=== PATIENT | female | born 2000 ===

== ENCOUNTER 2022-04-01 23:24 | Emergency (ER) | payer OTHER ==
[~2022-04-01] VITALS: Ht 177.8 cm; Wt 89.1 kg
[2022-04-01 23:49] VITALS: TEMP 98.5
[2022-04-02 00:42] LABS: COLLECTION METHOD CLEAN CATCH
[2022-04-02 00:46] LABS: BASO # 0.1 K/mm3 (0.0-0.2); BASO % 1.1 % (0.0-2.0); EOS # 0.1 K/mm3 (0.0-0.7); EOS % 2.4 % (0.0-4.0); GRAN # 2.9 K/mm3 (1.4-6.5); GRAN % 52.7 % (42.2-75.2); HEMATOCRIT 41.7 % (37.0-47.0); HEMOGLOBIN 14.1 g/dl (12.5-16.0); LYMPH % 36.4 % (20.0-51.0); MEAN CELL VOLUME 91 fl (80.0-100.0); MEAN CORPUSCULAR HEMOGLOBIN 31 pg (27-31); MEAN CORPUSCULAR HGB CONC 34 g/dl (33.0-37.0); MEAN PLATELET VOLUME 10.9 fl (7.4-10.4); MONO # 0.4 K/mm3 (0.1-0.6); MONO % 7.2 % (1.7-9.3); PLATELET COUNT 255 K/mm3 (130-400); RED BLOOD COUNT 4.57 M/mm3 (4.10-5.30); REDCELL DISTRIBUTION WIDTH-CV 12.1 % (11.5-14.5)
[2022-04-02 00:48] LABS: URINE COLOR Yellow (YELLOW)
[2022-04-02 00:49] LABS: URINE APPEARANCE Hazy (CLEAR/HAZY); URINE BLOOD Negative (NEGATIVE); URINE GLUCOSE Negative (NEGATIVE); URINE KETONE Negative (NEGATIVE); URINE NITRATE Negative (NEGATIVE); URINE PROTEIN(semi-quant) Negative (NEGATIVE); URINE UROBILINOGEN 0.2 E.U/dL (0.2-1.0)
[2022-04-02 00:55] LABS: AMORPHOUS CRYSTAL Present (NOT PRESENT); MUCOUS Present (NOT PRESENT); URINE BACTERIA None Seen /hpf (NONE SEEN); URINE RBC 0-2 /hpf (0-2)
[2022-04-02 01:05] LABS: ALBUMIN 3.9 gm/dL (3.5-5.0); BILIRUBIN,TOTAL 0.2 mg/dL (0.2-1.2); C-REACTIVE PROTEIN 0.21 mg/dL (0.00-0.50); CALCIUM 9.5 mg/dL (8.4-10.2); CREATININE, serum 0.83 mg/dL (0.57-1.11); POTASSIUM 3.4 mmol/L (3.5-4.5); TOTAL PROTEIN 7.9 gm/dL (6.2-8.1)
[2022-04-02] MEDS ORDERED: GOLYTELY SOLU4000 ML PO (03:16)
[2022-04-02 03:37] VITALS: BP 120/82; PULSE 74
== END 2022-04-02 03:39 | disposition home or self-care (01) ==
LOC: COL.ER 23:24
PROVIDERS: Emergency Medicine
DX: R10.31 Right lower quadrant pain (principal); R10.32 Left lower quadrant pain; K59.00 Constipation, unspecified; R16.0 Hepatomegaly, not elsewhere classified; E87.6 Hypokalemia; Z32.02 Encounter for pregnancy test, result negative
CPT/HCPCS: J1885; J2270; J2405; J7030; Q9967

== ENCOUNTER 2023-10-13 10:00 | Day surgery (SDC) | payer OTHER ==
[~2023-10-13] VITALS: Ht 179.1 cm; Wt 105.0 kg
[2023-10-13 10:00] VITALS: BP 102/72; PULSE 76; TEMP 96.7
[~2023-10-13 10:00] MED LIST: COLACE 100100 MG/CAP PO; GOLYTELY SOLU4000 ML PO; Glycopyrrolate 0.2 MG/ML 1 ML VIAL ONE; LR 1,000 ML IV SCH; Lidocaine PF 2% (20 MG/ML) 5 ML VIAL ONE; M-NATAL PLUS T1 EACH PO; MINIPRESS 1M1 MG/CAP PO; Ondansetron 4 MG/2 ML VIAL IV PRN; PROAIR HFA0.09 MG/AC IH; ROBAXIN 50500 MG/TAB PO; SEROQUEL 1100 MG/TAB PO; VITAMIN D31000 I1 PO
--- NOTE | 2023-10-13 10:08 | NUR ---
Pt ambulates with steady gait to [facility] bay [facility]. Urine sample obtained, see to lab. Consents signed. Admission assessments completed. 20G IV inserted into right hand, LR infusing without difficulty. Questions answered. Pt reports that stools are clear and green in color.
[2023-10-13 10:48] VITALS: BP 117/84; PULSE 77
[2023-10-13 11:00] VITALS: BP 105/77; PULSE 66
--- NOTE | 2023-10-13 11:40 | NUR ---
1048 pt arrives to bay #1, alert and awake. pt reports nausea, no pain or dysphagia. pt is a sba to recliner. 1100 snack given and pt tolerates this well 1108 pt given dc instructions, present in the room. all questions invited and answered. 1115 into see pt. 1130 pt dresses self.
== END 2023-10-13 11:45 | disposition home or self-care (01) ==
LOC: SDCO 10:00
DX: K29.50 Unspecified chronic gastritis without bleeding (principal); K22.89 Other specified disease of esophagus; K62.89 Other specified diseases of anus and rectum; K59.09 Other constipation; K92.1 Melena; K64.0 First degree hemorrhoids; F17.290 Nicotine dependence, other tobacco product, uncomplicated; Z79.899 Other long term (current) drug therapy
CPT/HCPCS: J2704